=== PATIENT | male | born 1960 | race Caucasian/White ===

== ENCOUNTER 2017-03-12 23:26 | Emergency (ER) | payer BC ==
[2017-03-12 23:45] VITALS: BP 149/98
--- NOTE | 2017-03-12 23:45 | EDM.PDOC ---
ED HPI GENERAL MEDICAL PROBLEM - General Chief Complaint: Neurological Problem Stated Complaint: AMBULANCE Time Seen by Provider: 03/12/17 23:41 Source of Information: Reports: Patient, Family History Limitations: Reports: No Limitations - History of Present Illness INITIAL COMMENTS - FREE TEXT/NARRATIVE: pt states not sure what happened avila, denies HOPE/CP/SOB. brother states pt has been confused all day at work and their 2 older sisters have seizures and are on Rx. avila brother brought pt home from work and while they were standing near the car pt fell and had a grand mal like seizure like their older sister. - Related Data Allergies Allergy/AdvReac Type Severity Reaction Status Date / Time Penicillins Allergy Cannot Verified 03/12/17 23:25 Remember Home Meds: Home Meds PARoxetine [Paxil] 20 mg PO DAILY 09/11/15 [History] Hydrochlorothiazide 25 mg PO DAILY 10/16/16 [History] Metoprolol Tartrate [Lopressor] 1 tab PO DAILY 10/16/16 [History] Past Medical History HEENT History: Reports: Other (See Below) Other HEENT History: eyeglasses Cardiovascular History: Reports: Hypertension Psychiatric History: Reports: Depression Other Psychiatric History: patients depressed since Social & Family History - Family History Family Medical History: Noncontributory - Tobacco Use Smoking Status *Q: Never Smoker Second Hand Smoke Exposure: No - Caffeine Use Caffeine Use: Reports: None - Alcohol Use Days Per Week of Alcohol Use: 7 Number of Drinks Per Day: 4 Total Drinks Per Week: 28 - Recreational Drug Use Recreational Drug Use: No ED ROS GENERAL - Review of Systems Review Of Systems: ROS reveals no pertinent complaints other than HPI. - Physical Exam Exam: See Below Exam Limited By: No Limitations General Appearance: Alert, WD/WN, Other (confusion) Eye Exam: Bilateral Eye: PERRL (pupils ER @ 4mm) Ears: Hearing Grossly Normal Throat/Mouth: Normal Voice, No Airway Compromise Head Exam: Atraumatic Neck: Non-Tender, Full Range of Motion Respiratory/Chest: No Respiratory Distress Cardiovascular: Regular Rate, Rhythm GI/Abdominal: Soft, Non-Tender Neuro Exam (Abbreviated): Alert, Normal Gait, No Motor/Sensory Deficits, Confused Psychiatric: Flat Affect Skin Exam: Warm, Dry, Ecchymosis Course - Vital Signs Last Recorded V/S: Last Vital Signs Temp 36.4 C 03/12/17 23:44 Pulse 113 H 03/12/17 23:44 Resp 20 03/12/17 23:44 BP 149/98 H 03/12/17 23:44 Pulse Ox 96 03/12/17 23:44 - Orders/Labs/Meds Labs: Laboratory Tests 03/12/17 03/12/17 03/12/17 Range/Units 23:36 23:36 23:45 WBC 7.3 (5.0-10.0) 10^3/uL RBC 4.59 L (4.6-6.2) 10^6/uL Hgb 14.3 (14.0-18.0) g/dL Hct 41.3 (40.0-54.0) % MCV 90.0 (80-100) fL MCH 31.2 (27.0-34.0) pg MCHC 34.6 (33.0-35.0) g/dL Plt Count 198 (150-450) 10^3/uL Neut % (Auto) 64.3 (42.2-75.2) % Lymph % (Auto) 24.8 (20.5-50.1) % [place] % (Auto) 8.1 H (2-8) % Eos % (Auto) 2.5 (1.0-3.0) % Baso % (Auto) 0.3 (0.0-1.0) % Sodium 140 (135-145) mmol/L Potassium 4.6 (3.6-5.0) mmol/L Chloride 107 (101-111) mmol/L Carbon Dioxide 18.0 L (21.0-31.0) mmol/L Anion Gap 19.6 BUN 16 (7-18) mg/dL Creatinine 1.1 (0.6-1.3) mg/dL Est Cr Clr Drug Dosing 74.09 mL/min Estimated GFR (MDRD) > 60 BUN/Creatinine Ratio 14.54 Glucose 147 H (74-105) mg/dL Calcium 8.6 (8.4-10.2) mg/dl Total Bilirubin 0.9 (0.2-1.0) mg/dL AST 32 (10-42) IU/L ALT 39 (10-60) IU/L Alkaline Phosphatase 42 (42-121) IU/L Total Protein 6.6 L (6.7-8.2) g/dl Albumin 4.1 (3.2-5.5) g/dl Globulin 2.5 Albumin/Globulin Ratio 1.64 Urine Color (YELLOW) Urine Appearance (CLEAR) Urine pH (5.0-9.0) Ur Specific [place] (1.005-1.030) Urine Protein (NEGATIVE) Urine Glucose (UA) (NEGATIVE) Urine Ketones (NEGATIVE) Urine Occult Blood (NEGATIVE) Urine Nitrite (NEGATIVE) Urine Bilirubin (NEGATIVE) Urine Urobilinogen (0.2-1.0) mg/dL Ur Leukocyte Esterase (NEGATIVE) Urine RBC /HPF Urine WBC (0-5/HPF) /HPF Ur Epithelial Cells /HPF Amorphous Sediment (0/HPF) /HPF Urine Bacteria (0-FEW/HPF) /HPF Urine Mucus /LPF Urine Opiates Screen Negative (NEGATIVE) Ur Oxycodone Screen Negative (NEGATIVE) Urine Methadone Screen Negative (NEGATIVE) Ur Barbiturates Screen Negative (NEGATIVE) U Tricyclic Antidepress Negative (NEGATIVE) Ur Phencyclidine Scrn Negative (NEGATIVE) Ur Amphetamine Screen Negative (NEGATIVE) U Methamphetamines Scrn Negative (NEGATIVE) Urine MDMA Screen Negative (NEGATIVE) U Benzodiazepines Scrn Negative (NEGATIVE) Urine Cocaine Screen Negative (NEGATIVE) U Marijuana (THC) Screen Negative (NEGATIVE) Ethyl Alcohol < 5 mg/dL 03/12/17 Range/Units 23:45 WBC (5.0-10.0) 10^3/uL RBC (4.6-6.2) 10^6/uL Hgb (14.0-18.0) g/dL Hct (40.0-54.0) % MCV (80-100) fL MCH (27.0-34.0) pg MCHC (33.0-35.0) g/dL Plt Count (150-450) 10^3/uL Neut % (Auto) (42.2-75.2) % Lymph % (Auto) (20.5-50.1) % [place] % (Auto) (2-8) % Eos % (Auto) (1.0-3.0) % Baso % (Auto) (0.0-1.0) % Sodium (135-145) mmol/L Potassium (3.6-5.0) mmol/L Chloride (101-111) mmol/L Carbon Dioxide (21.0-31.0) mmol/L Anion Gap BUN (7-18) mg/dL Creatinine (0.6-1.3) mg/dL Est Cr Clr Drug Dosing mL/min Estimated GFR (MDRD) BUN/Creatinine Ratio Glucose (74-105) mg/dL Calcium (8.4-10.2) mg/dl Total Bilirubin (0.2-1.0) mg/dL AST (10-42) IU/L ALT (10-60) IU/L Alkaline Phosphatase (42-121) IU/L Total Protein (6.7-8.2) g/dl Albumin (3.2-5.5) g/dl Globulin Albumin/Globulin Ratio Urine Color Yellow (YELLOW) Urine Appearance Slightly cloudy (CLEAR) Urine pH 5.5 (5.0-9.0) Ur Specific [place] 1.025 (1.005-1.030) Urine Protein 100 H (NEGATIVE) Urine Glucose (UA) Negative (NEGATIVE) Urine Ketones Negative (NEGATIVE) Urine Occult Blood Trace-lysed H (NEGATIVE) Urine Nitrite Negative (NEGATIVE) Urine Bilirubin Negative (NEGATIVE) Urine Urobilinogen 0.2 (0.2-1.0) mg/dL Ur Leukocyte Esterase Negative (NEGATIVE) Urine RBC 0-5 /HPF Urine WBC 0-5 (0-5/HPF) /HPF Ur Epithelial Cells Rare /HPF Amorphous Sediment Rare (0/HPF) /HPF Urine Bacteria Rare (0-FEW/HPF) /HPF Urine Mucus Moderate H /LPF Urine Opiates Screen (NEGATIVE) Ur Oxycodone Screen (NEGATIVE) Urine Methadone Screen (NEGATIVE) Ur Barbiturates Screen (NEGATIVE) U Tricyclic Antidepress (NEGATIVE) Ur Phencyclidine Scrn (NEGATIVE) Ur Amphetamine Screen (NEGATIVE) U Methamphetamines Scrn (NEGATIVE) Urine MDMA Screen (NEGATIVE) U Benzodiazepines Scrn (NEGATIVE) Urine Cocaine Screen (NEGATIVE) U Marijuana (THC) Screen (NEGATIVE) Ethyl Alcohol mg/dL - Re-Assessments/Exams Free Text/Narrative Re-Assessment/Exam: 03/13/17 00:52 results discussed with Pt & brother. Pt has no c/o presently Departure - Departure Time of Disposition: 00:53 Disposition: Home, Self-Care 01 Condition: Good Clinical Impression: Seizure - Discharge Information Instructions: Epilepsy, [id number] Forms: ED Department Discharge Additional Instructions: 1) rest and avoid vigorous activities next 3 to 4 days 2) call Dr Wynne Wednesday for EEG for seizure 3) recheck if there is any change or concern
[2017-03-13 00:02] LABS: CHLORIDE,CL 107 mmol/L (101-111); SODIUM,NA 140 mmol/L (135-145)
== END 2017-03-13 01:06 | disposition home or self-care (01) ==
LOC: DL.ED 23:26
DX: R56.9 Unspecified convulsions (principal); F32.9 Major depressive disorder, single episode, unspecified; I10 Essential (primary) hypertension; Z88.0 Allergy status to penicillin; Z79.899 Other long term (current) drug therapy
CPT/HCPCS: 36415; 70450; 80053; 80305; 81001; 85025; 99285; G0480

== ENCOUNTER 2017-05-16 21:27 | Emergency (ER) | payer BC ==
[2017-05-16 22:11] LABS: CHLORIDE,CL 102 mmol/L (101-111); SODIUM,NA 143 mmol/L (135-145)
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
[2017-05-16] MEDS ORDERED: Phenytoin 250 MG/5 ML SDV IV ONE (22:54)
[2017-05-17 00:07] VITALS: BP 136/94
--- NOTE | 2017-05-24 10:26 | EKG ---
05/16/2017- PATRICE YAO - This is a standard 12-lead EKG showing normal sinus rhythm with tachycardia, ventricular rate 126 beats per minute. Left anterior fascicular block. No significant ST-T changes. [facility] /[id number]
== END 2017-05-17 00:55 | disposition home or self-care (01) ==
LOC: DL.ED 21:27
DX: R56.9 Unspecified convulsions (principal); I10 Essential (primary) hypertension; F32.9 Major depressive disorder, single episode, unspecified; R79.89 Other specified abnormal findings of blood chemistry; Z88.0 Allergy status to penicillin; Z79.899 Other long term (current) drug therapy
CPT/HCPCS: 36415; 70450; 80053; 80185; 80305; 81001; 84484; 85025; 93005; 96365; 99284; G0480; J1165

== ENCOUNTER 2019-08-14 18:13 | Emergency (ER) | payer BC, MEDICAID ==
[2019-08-14 18:09] VITALS: BP 182/109; PULSE 135
[2019-08-14] MEDS ORDERED: levETIRAcetam 500 MG in Sodium Chloride 0.9% 100 ML IV ONE (18:33)
--- NOTE | 2019-08-14 18:40 | EDM.PDOC ---
ED HPI GENERAL MEDICAL PROBLEM - General Source of Information: Reports: Patient History Limitations: Reports: No Limitations - History of Present Illness Onset: Today Duration: Improving Location: Reports: Other Quality: Reports: Other Severity: Mild Improves with: Reports: None Worsens with: Reports: None Context: Reports: Other Associated Symptoms: Reports: No Other Symptoms <Christopher Sharma - Last Filed: 08/14/19 19:19> <Jose JmustaphaIra - Last Filed: 08/15/19 13:54> - General Chief Complaint: Neuro Symptoms/Deficits Stated Complaint: AMBULANCE Time Seen by Provider: 08/14/19 18:20 - History of Present Illness INITIAL COMMENTS - FREE TEXT/NARRATIVE: This 59 yo male patient was brought to the ED by [facility] due to a seizure. EMS reports they were called to [facility] for a male having a seizure. Upon arrival, the patient was no longer having seizure activity, but could not remember what was happening. The patient reports he could not remember going to [facility]. The patient only remembers waking up in the ED. The patient reports he has a history of seizures and takes medications for it. The patient reports he has been taking his medications as prescribed. The patient had difficulties remembering the day, month and year. The patient does know where he is and how he got here. (Christopher Sharma) - Related Data Allergies Allergy/AdvReac Type Severity Reaction Status Date / Time Penicillins Allergy Cannot Verified 08/14/19 18:34 Remember Home Meds: Home Meds PARoxetine [Paxil] 15 mg PO DAILY 09/11/15 [History] Hydrochlorothiazide 50 mg PO DAILY 10/16/16 [History] Metoprolol Tartrate [Lopressor] 1 tab PO DAILY 10/16/16 [History] Phenytoin 100 mg PO TID 05/16/17 [History] levETIRAcetam [Levetiracetam] 1 tab PO BID 05/16/17 [History] Past Medical History HEENT History: Reports: Impaired Vision Other HEENT History: eyeglasses Cardiovascular History: Reports: Hypertension Respiratory History: Reports: None Gastrointestinal History: Reports: None Genitourinary History: Reports: None Musculoskeletal History: Reports: None Neurological History: Reports: Seizure Psychiatric History: Reports: Depression Other Psychiatric History: patients depressed since Endocrine/Metabolic History: Reports: None Hematologic History: Reports: None Immunologic History: Reports: None Oncologic (Cancer) History: Reports: None Dermatologic History: Reports: None - Infectious Disease History Infectious Disease History: Reports: None - Past Surgical History Head Surgeries/Procedures: Reports: None <Christopher Sharma - Last Filed: 08/14/19 19:19> Social & Family History - Family History Family Medical History: Noncontributory - Tobacco Use Smoking Status *Q: Never Smoker - Caffeine Use Caffeine Use: Reports: Coffee, Soda, Tea - Recreational Drug Use Recreational Drug Use: No <Christopher Sharma - Last Filed: 08/14/19 19:19> ED ROS GENERAL - Review of Systems Review Of Systems: Comprehensive ROS is negative, except as noted in HPI. <Christopher Sharma - Last Filed: 08/14/19 19:19> - Physical Exam Exam: See Below Exam Limited By: No Limitations General Appearance: Alert, WD/WN, Mild Distress Eye Exam: Bilateral Eye: EOMI, Normal Inspection, PERRL Ears: Normal External Exam, Normal Canal, Hearing Grossly Normal, Normal TMs Nose: Normal Inspection, Normal Mucosa, No Blood Throat/Mouth: Normal Inspection, Normal Lips, Normal Teeth, Normal Gums, Normal Oropharynx, Normal Voice, No Airway Compromise Head Exam: Atraumatic, Normocephalic Neck: Normal Inspection, Supple, Non-Tender, Full Range of Motion Respiratory/Chest: No Respiratory Distress, Lungs Clear, Normal Breath Sounds, No Accessory Muscle Use, Chest Non-Tender Cardiovascular: Normal Peripheral Pulses, Regular Rate, Rhythm, No Edema, No Gallop, No JVD, No Murmur, No Rub GI/Abdominal: Normal Bowel Sounds, Soft, Non-Tender, No Organomegaly, No Distention, No Abnormal Bruit, No Mass (Male) Exam: Deferred Rectal (Males) Exam: Deferred Neuro Exam (Abbreviated): Alert, Oriented, CN II-XII Intact, Normal Cognition, Normal Gait, Normal Reflexes, No Motor/Sensory Deficits Back Exam: Normal Inspection, Full Range of Motion, NT Extremities: Normal Inspection, Normal Range of Motion, Non-Tender, No Pedal Edema, Normal Capillary Refill Psychiatric: Normal Affect, Normal Mood Skin Exam: Warm, Dry, Intact, Normal Color, No Rash <Christopher Sharma - Last Filed: 08/14/19 19:19> Course <Christopher Sharma - Last Filed: 08/14/19 19:19> <Ira Jones - Last Filed: 08/15/19 13:54> - Vital Signs Last Recorded V/S: Last Vital Signs Temp 98.6 F 08/14/19 18:06 Pulse 135 H 08/14/19 18:06 Resp 12 08/14/19 18:06 BP 182/109 H 08/14/19 18:06 Pulse Ox 98 08/14/19 18:06 - Orders/Labs/Meds Orders: Active Orders 24 hr Category Date Time Status LEVETIRACETAM, S [REF] Urgent Lab 08/14/19 18:04 Received Labs: Laboratory Tests 08/14/19 08/14/19 08/14/19 Range/Units 18:04 18:04 18:04 WBC 17.9 H (5.0-10.0) 10^3/uL RBC 5.11 (4.6-6.2) 10^6/uL Hgb 16.2 (14.0-18.0) g/dL Hct 45.4 (40.0-54.0) % MCV 88.8 (80-100) fL MCH 31.7 (27.0-34.0) pg MCHC 35.7 H (33.0-35.0) g/dL Plt Count 594 H D (150-450) 10^3/uL Neut % (Auto) 48.9 (42.2-75.2) % Lymph % (Auto) 38.0 (20.5-50.1) % Buchanan % (Auto) 10.7 H (2-8) % Eos % (Auto) 2.0 (1.0-3.0) % Baso % (Auto) 0.4 (0.0-1.0) % Sodium 140 (135-145) mmol/L Potassium 2.7 L (3.6-5.0) mmol/L Chloride 102 (101-111) mmol/L Carbon Dioxide 17.0 L (21.0-31.0) mmol/L Anion Gap 23.7 BUN 12 (7-18) mg/dL Creatinine 1.2 (0.6-1.3) mg/dL Est Cr Clr Drug Dosing 65.46 mL/min Estimated GFR (MDRD) > 60 BUN/Creatinine Ratio 10.00 Glucose 118 H (74-105) mg/dL Calcium 9.2 (8.4-10.2) mg/dl Total Bilirubin 1.2 H (0.2-1.0) mg/dL AST 57 H (10-42) IU/L ALT 71 H (10-60) IU/L Alkaline Phosphatase 58 (42-121) IU/L Total Protein 7.9 (6.7-8.2) g/dl Albumin 4.8 (3.2-5.5) g/dl Globulin 3.1 Albumin/Globulin Ratio 1.55 Ethyl Alcohol 5 mg/dL Meds: Medications Discontinued Medications Generic Name Dose Route Start Last Admin Trade Name Freq PRN Reason Stop Dose Admin Levetiracetam 500 mg/ Sodium 105 mls @ 400 mls/hr 08/14/19 18:33 08/14/19 18: 39 Chloride IV 08/14/19 18:47 400 mls/hr ONETIME ONE Administration Potassium Chloride 10 meq/ 100 mls @ 100 mls/hr 08/14/19 18:48 08/14/19 19:01 Premix IV 08/14/19 19:47 100 mls/hr ONETIME ONE Administration Lidocaine HCl 1 ml 08/14/19 18:49 08/14/19 19:01 Xylocaine-Mpf 1% INJECT 08/14/19 18:50 1 ml ONETIME ONE Administration Potassium Chloride 40 meq 08/14/19 18:48 08/14/19 19:02 Klor-Con 10 PO 08/14/19 18:49 40 meq ONETIME ONE Administration - Radiology Interpretation Free Text/Narrative:: PROCEDURE INFORMATION: Exam: CT Head Without Contrast Exam date and time: 08/14/2019 7:00 PM Age: 59 years old Clinical indication: Other: Seizure TECHNIQUE: Imaging protocol: Computed tomography of the head without contrast. Radiation optimization: All CT scans at this facility use at least one of these dose optimization techniques: automated exposure control; mA and/or kV adjustment per patient size (includes targeted exams where dose is matched to clinical indication); or iterative reconstruction. COMPARISON: CT Head wo Cont 05/16/2017 9:40 PM FINDINGS: Brain: There is stable mild amount of scattered areas of hypoattenuation of the supratentorial white matter, most likely secondary to microvascular ischemic changes. No acute intracranial hemorrhage. Ventricles: Normal. No ventriculomegaly. Bones/joints: Unremarkable. No acute fracture. Sinuses: Visualized sinuses are unremarkable. No fluid levels. Mastoid air cells: Visualized mastoid air cells are well aerated. Soft tissues: Unremarkable. IMPRESSION: No acute intracranial process. Thank you for allowing us to participate in the care of your patient. Dictated and Authenticated by: Teodoro Pace MD ([facility]) - Re-Assessments/Exams Free Text/Narrative Re-Assessment/Exam: 08/14/19 18:52 The patient was advised of the lab results. The patient reports he has been having difficulties getting his Keppra filled and has not been taking the medication in the past couple of days. The patient was not able to remember when he last took his Keppra. (Christopher Sharma) 08/14/19 1920: Took over care of this patient from Christopher Sharma. Patient had Keppra 500 mg IV and Potassium. Head CT was negative. Patient was oriented to place, time and situation. Discuss patient care with the Hospitalist soft iron inspector Juan Francisco Mendoza who is the Patient's PCP and he recommended discharged to home with RX for Keppra and Potassium. Patient is encouraged to follow up in the clinic with his PCP in one week. Patient in agreement to plan. 08/15/19 13:53 [facility] <Christopher Sharma - Last Filed: 08/14/19 19:19> - Departure Time of Disposition: 22:18 Condition: Fair <[facility] - Last Filed: 08/15/19 13:54> - Departure Disposition: Home, Self-Care 01 Clinical Impression: Seizure, Hypokalemia Hypertension Qualifiers: Hypertension type: essential hypertension Qualified Code(s): I10 - Essential ( primary) hypertension - Discharge Information Instructions: Potassium Content of Foods, Seizure, Adult, [id number], Hypertension, Potassium Test Referrals: Tiburcio Bledsoe MD [Primary Care Provider] - Forms: ED Department Discharge Additional Instructions: Instructions on potassium rich foods reviewed with patient. Strongly encouraged him to take his medications as prescribed. Follow up with in one week. Rx for keppra and Potassium send with patient. He verbalized understanding. Sepsis Event Note - Evaluation Sepsis Screening Result: No Definite Risk - Focused Exam Date Exam was Performed: 08/14/19 Time Exam was Performed: 19:19 <Christopher Sharma - Last Filed: 08/14/19 19:19> - Focused Exam Date Exam was Performed: 08/15/19 Time Exam was Performed: 13:50 <Ira Jones - Last Filed: 08/15/19 13:54>
[2019-08-14 18:45] LABS: ANION GAP 23.7; CHLORIDE,CL 102 mmol/L (101-111); SODIUM,NA 140 mmol/L (135-145)
[2019-08-14] MEDS ORDERED: Potassium Chloride 10 MEQ Tab.ER PO ONE (18:48)
[2019-08-14] MEDS ORDERED: Potassium Chloride 10 MEQ in Premix Bag 1 BAG IV ONE (18:48)
[2019-08-14] MEDS ORDERED: Lidocaine 1% 30 ML SDV INJECT ONE (18:49)
== END 2019-08-14 22:47 | disposition home or self-care (01) ==
LOC: DL.ED 18:13
DX: R56.9 Unspecified convulsions (principal); I10 Essential (primary) hypertension; E87.6 Hypokalemia
CPT/HCPCS: 36415; 70450; 80053; 80177; 85025; 96365; 96367; 99285-25; A9270-GY; G0480; J1953; J2001; J3480; J7050

== ENCOUNTER → 2023-07-08 | Day surgery (SDC) | payer MEDICAID, MEDICARE ==
[~2023-07-08] MED LIST: Dextrose 5%-0.45% NaCl 1,000 ML IV SCH; Midazolam 1 MG/ML 2 ML SDV IV ONE; Midazolam 1 MG/ML 2 ML SDV ONE; fentaNYL 100 MCG/2 ML SDV IV ONE; fentaNYL 100 MCG/2 ML SDV ONE
[2023-07-08 07:44] VITALS: BP 168/107; PULSE 85
== END | disposition home or self-care (01) ==
LOC: DL.ENDO 06:18
PROVIDERS: ATTEND Internal Medicine Gastroenterology
DX: K29.50 Unspecified chronic gastritis without bleeding (principal); I10 Essential (primary) hypertension
CPT/HCPCS: 87077; 88305; J2250; J3010; J7042

== ENCOUNTER 2023-10-14 05:52 | Day surgery (SDC) | payer MEDICARE ==
[~2023-10-14 05:52] MED LIST changes: -Midazolam 1 MG/ML 2 ML SDV IV ONE; -Midazolam 1 MG/ML 2 ML SDV ONE; -fentaNYL 100 MCG/2 ML SDV IV ONE; -fentaNYL 100 MCG/2 ML SDV ONE
[2023-10-14] MEDS ORDERED: Midazolam 1 MG/ML 2 ML SDV ONE (06:06)
[2023-10-14] MEDS ORDERED: fentaNYL 100 MCG/2 ML SDV ONE (06:07)
[2023-10-14] MEDS: Dextrose 5%-0.45% NaCl 1,000 ML IV SCH (06:39)
[2023-10-14] MEDS: fentaNYL 100 MCG/2 ML SDV IV ONE ×2 (06:58→06:59)
[2023-10-14] MEDS: Midazolam 1 MG/ML 2 ML SDV IV ONE ×3 (06:59→07:06)
[2023-10-14 11:21] VITALS: BP 128/62; PULSE 72
== END 2023-10-14 09:40 | disposition home or self-care (01) ==
LOC: DL.ENDO 05:52
PROVIDERS: ATTEND Internal Medicine Gastroenterology
DX: D50.9 Iron deficiency anemia, unspecified (principal); K64.8 Other hemorrhoids; K63.5 Polyp of colon; Z88.0 Allergy status to penicillin
CPT/HCPCS: 45378; J2250; J3010; J7042

== ENCOUNTER 2024-03-16 06:17 | Day surgery (SDC) | payer MEDICARE ==
[~2024-03-16 06:17] MED LIST changes: -Dextrose 5%-0.45% NaCl 1,000 ML IV SCH; +Midazolam 1 MG/ML 2 ML SDV ONE; +fentaNYL 100 MCG/2 ML SDV ONE
[2024-03-16] MEDS ORDERED: fentaNYL 100 MCG/2 ML SDV IV ONE (06:18)
[2024-03-16] MEDS ORDERED: Midazolam 1 MG/ML 2 ML SDV IV ONE (06:18)
[2024-03-16] MEDS: Dextrose 5%-0.45% NaCl 1,000 ML IV SCH (07:16)
[2024-03-16] MEDS: fentaNYL 100 MCG/2 ML SDV IV ONE ×2 (07:49→07:50)
[2024-03-16] MEDS: Midazolam 1 MG/ML 2 ML SDV IV ONE ×5 (07:50→07:59)
[2024-03-16 09:30] VITALS: BP 144/86; PULSE 81
== END 2024-03-16 10:10 | disposition home or self-care (01) ==
LOC: DL.ENDO 06:17
PROVIDERS: ATTEND Internal Medicine Gastroenterology
DX: K57.30 Diverticulosis of large intestine without perforation or abscess without bleeding (principal); K64.8 Other hemorrhoids; D50.9 Iron deficiency anemia, unspecified; I10 Essential (primary) hypertension; F41.9 Anxiety disorder, unspecified; F32.A Depression, unspecified; E66.9 Obesity, unspecified; Z68.37 Body mass index [BMI] 37.0-37.9, adult
CPT/HCPCS: J2250; J3010; J7799